=== PATIENT | male | born 1995 | race Caucasian/White ===

== ENCOUNTER 2016-11-02 00:17 | Emergency (ER) | payer MEDICAID ==
[~2016-11-02 00:17] MED LIST: AZULFIDINE500 MG PO; BENTYL10 MG PO; CARAFATE1 G PO; CARAFATE1 G/10 ML PO; DELZICOL400 MG PO; PREDNISONE20 MG PO; PROTONIX I40 MG/VIAL PO; PROTONIX40 MG PO; PROZAC40 MG PO; ULTRAM50 MG PO; XANAX0.25 MG PO
== END 2016-11-02 01:18 | disposition home or self-care (01) ==
LOC: D.ER 00:17
DX: M54.5 Low back pain (principal); G89.29 Other chronic pain; W18.30XA Fall on same level, unspecified, initial encounter; Y93.89 Activity, other specified; Y92.019 Unspecified place in single-family (private) house as the place of occurrence of the external cause; K27.9 Peptic ulcer, site unspecified, unspecified as acute or chronic, without hemorrhage or perforation

== ENCOUNTER 2017-04-08 18:22 | Emergency (ER) | payer MEDICAID | END 2017-04-08 20:34 | disposition home or self-care (01) | LOC: D.ER 18:22 | DX: M79.605 Pain in left leg (principal); L03.116 Cellulitis of left lower limb ==

== ENCOUNTER 2017-10-14 16:11 | Emergency (ER) | payer OTHER ==
[2017-10-21 15:18] LABS: AEROBE ID Final report (())
== END 2017-10-14 18:10 | disposition home or self-care (01) ==
LOC: D.ER 16:11
PROVIDERS: Nurse Practitioner Family
DX: J11.1 Influenza due to unidentified influenza virus with other respiratory manifestations (principal); R05 Cough; R09.89 Other specified symptoms and signs involving the circulatory and respiratory systems; R50.9 Fever, unspecified; R51 Headache; R53.83 Other fatigue

== ENCOUNTER 2017-12-20 19:24 | Emergency (ER) | payer OTHER ==
[2017-12-20 23:37] LABS: HEMATOCRIT 41.6 % (42.0-54.0); HEMOGLOBIN 13.7 g/dL (13.5-17.5); LYMPHOCYTES 29.9 % (15-50); MCH 26.2 pg (26.0-34.0); MCHC 32.9 g/dL (31.0-37.0); MCV 79.7 fL (80.0-100.0); MEAN PLATELET VOLUME 7.8 fL (7.4-10.4); NEUTROPHILS 55.9 % (40-80); PLATELET COUNT 300 10x3/uL (130-400); RBC 5.22 10x6/uL (4.20-6.10); RDW 12.6 % (11.5-14.5); WBC 7.8 10x3/uL (4.8-10.8)
[2017-12-20 23:54] LABS: ALBUMIN 3.5 g/dL (3.4-5.0); ALKALINE PHOSPHATASE 49 U/L (46-116); ALT (SGPT) 32 U/L (10-68); BILIRUBIN - TOTAL 0.18 mg/dL (0.2-1.3); CALC OSMOLALITY 282 mosm/kg (275-300); CALCIUM 9.1 mg/dL (8.5-10.1); CARBON DIOXIDE 28.8 mmol/L (21.0-32.0); CHLORIDE - SERUM 106 mmol/L (98-107); CREATININE - SERUM 0.9 mg/dL (0.6-1.3); PROTEIN - SERUM 7.2 g/dL (6.4-8.2); SODIUM 137 mmol/L (136-145); UREA NITROGEN 12 mg/dL (7-18); eGFR NON AFRICAN AMERICAN > 90 mL/min (90-120)
[2017-12-20 23:57] LABS: GLUCOSE 259 mg/dL (74-106)
== END 2017-12-21 00:17 | disposition home or self-care (01) ==
LOC: D.ER 19:24
PROVIDERS: Physician Assistant Medical
DX: J20.9 Acute bronchitis, unspecified (principal); R50.9 Fever, unspecified

== ENCOUNTER 2018-03-20 17:06 | Emergency (ER) | payer OTHER ==
[2018-03-20 18:56] LABS: BASOPHILS 0.4 % (0-2); EOSINOPHILS 1.9 % (0-7); HEMATOCRIT 42.7 % (42.0-54.0); HEMOGLOBIN 14.5 g/dL (13.5-17.5); IMMATURE GRANULOCYTES 0.2 % (0-5); LYMPHOCYTES 19.8 % (15-50); MCH 26.7 pg (26.0-34.0); MCV 78.6 fL (80.0-100.0); MEAN PLATELET VOLUME 8.6 fL (7.4-10.4); NEUTROPHILS 72.7 % (40-80); PLATELET COUNT 274 10x3/uL (130-400); RBC 5.43 10x6/uL (4.20-6.10); RDW 13.3 % (11.5-14.5); WBC 10.2 10x3/uL (4.8-10.8)
[2018-03-20 19:08] LABS: ALKALINE PHOSPHATASE 66 U/L (46-116); ALT (SGPT) 37 U/L (10-68); BILIRUBIN - TOTAL 0.39 mg/dL (0.2-1.3); CALC OSMOLALITY 282 mosm/kg (275-300); CALCIUM 9.3 mg/dL (8.5-10.1); CHLORIDE - SERUM 101 mmol/L (98-107); CREATININE - SERUM 0.9 mg/dL (0.6-1.3); POTASSIUM - SERUM 3.9 mmol/L (3.5-5.1); PROTEIN - SERUM 7.8 g/dL (6.4-8.2); SODIUM 139 mmol/L (136-145); UREA NITROGEN 11 mg/dL (7-18); eGFR NON AFRICAN AMERICAN > 90 mL/min (90-120)
[2018-03-20 19:12] LABS: GLUCOSE 200 mg/dL (74-106)
[2018-03-20 20:08] LABS: ERYTHROCYTE SEDIMENTATION RATE 2 mm/hr (0-15)
== END 2018-03-20 22:03 | disposition home or self-care (01) ==
LOC: D.ER 17:06
PROVIDERS: Emergency Medicine; Physician Assistant
DX: R10.84 Generalized abdominal pain (principal); E11.9 Type 2 diabetes mellitus without complications; K50.90 Crohn's disease, unspecified, without complications

== ENCOUNTER 2018-04-07 11:37 | Emergency (ER) | payer OTHER ==
[~2018-04-07] VITALS: Ht 185.4 cm; Wt 113.6 kg
[2018-04-07 11:48] VITALS: Ht 185.4 cm; Wt 113.6 kg
[2018-04-07 12:15] LABS: BASOPHILS 0.8 % (0-2); EOSINOPHILS 3.2 % (0-7); HEMATOCRIT 45.7 % (42.0-54.0); HEMOGLOBIN 16.3 g/dL (13.5-17.5); IMMATURE GRANULOCYTES 0.2 % (0-5); LYMPHOCYTES 20.9 % (15-50); MCH 27.4 pg (26.0-34.0); MCHC 35.7 g/dL (31.0-37.0); MCV 76.8 fL (80.0-100.0); MEAN PLATELET VOLUME 8.3 fL (7.4-10.4); MONOCYTES 8.9 % (2-11); PLATELET COUNT 312 10x3/uL (130-400); RBC 5.95 10x6/uL (4.20-6.10); RDW 13.4 % (11.5-14.5); WBC 9.3 10x3/uL (4.8-10.8)
[2018-04-07 12:32] LABS: ALBUMIN 4.2 g/dL (3.4-5.0); ALKALINE PHOSPHATASE 86 U/L (46-116); ALT (SGPT) 74 U/L (10-68); AMYLASE - SERUM 12 U/L (25-115); CALC OSMOLALITY 278 mosm/kg (275-300); CALCIUM 9.1 mg/dL (8.5-10.1); CARBON DIOXIDE 23.3 mmol/L (21.0-32.0); CHLORIDE - SERUM 103 mmol/L (98-107); CREATININE - SERUM 0.9 mg/dL (0.6-1.3); LIPASE 97 U/L (73-393); POTASSIUM - SERUM 3.5 mmol/L (3.5-5.1); PROTEIN - SERUM 8.4 g/dL (6.4-8.2); SODIUM 137 mmol/L (136-145); UREA NITROGEN 18 mg/dL (7-18); eGFR NON AFRICAN AMERICAN > 90 mL/min (90-120)
[2018-04-07 12:38] LABS: GLUCOSE 149 mg/dL (74-106)
[2018-04-07 15:51] LABS: APPEARANCE CLEAR (CLEAR); BILIRUBIN NEGATIVE (NEGATIVE); COLOR YELLOW (YELLOW); GLUCOSE NEGATIVE (NEGATIVE); KETONE NEGATIVE (NEGATIVE); NITRITE NEGATIVE (NEGATIVE); PROTEIN TRACE mg/dL (NEGATIVE); SPECIFIC GRAVITY 1.015 (1.005-1.020); UROBILINOGEN NORMAL (NORMAL)
[2018-04-07] MEDS ORDERED: ZOFRAN4 MG PO (16:33)
[2018-04-07] MEDS ORDERED: PREDNISONE20 MG PO (16:33)
[2018-04-07 17:02] VITALS: BP 124/78
== END 2018-04-07 17:07 | disposition home or self-care (01) ==
LOC: D.ER 11:37
PROVIDERS: Family Medicine
DX: K52.9 Noninfective gastroenteritis and colitis, unspecified (principal); K50.90 Crohn's disease, unspecified, without complications; E11.9 Type 2 diabetes mellitus without complications

== ENCOUNTER 2018-06-06 17:55 | Emergency (ER) | payer OTHER ==
[~2018-06-06] VITALS: Ht 185.4 cm; Wt 131.8 kg
[~2018-06-06 17:55] MED LIST changes: +ZOFRAN4 MG PO
[2018-06-06 18:12] VITALS: Ht 185.4 cm; Wt 131.8 kg
[2018-06-06 19:10] LABS: BASOPHILS 0.1 % (0-2); EOSINOPHILS 2.8 % (0-7); HEMATOCRIT 44.5 % (42.0-54.0); HEMOGLOBIN 15.1 g/dL (13.5-17.5); IMMATURE GRANULOCYTES 0.2 % (0-5); LYMPHOCYTES 18.4 % (15-50); MCH 27.2 pg (26.0-34.0); MCHC 33.9 g/dL (31.0-37.0); MEAN PLATELET VOLUME 8.5 fL (7.4-10.4); MONOCYTES 4.6 % (2-11); NEUTROPHILS 73.9 % (40-80); PLATELET COUNT 290 10x3/uL (130-400); RBC 5.56 10x6/uL (4.20-6.10); RDW 13.2 % (11.5-14.5); WBC 10.2 10x3/uL (4.8-10.8)
[2018-06-06 19:45] LABS: ALBUMIN 3.9 g/dL (3.4-5.0); ALKALINE PHOSPHATASE 75 U/L (46-116); ALT (SGPT) 42 U/L (10-68); AMYLASE - SERUM 13 U/L (25-115); BILIRUBIN - TOTAL 0.29 mg/dL (0.2-1.3); CALC OSMOLALITY 278 mosm/kg (275-300); CALCIUM 8.9 mg/dL (8.5-10.1); CHLORIDE - SERUM 103 mmol/L (98-107); CREATININE - SERUM 0.6 mg/dL (0.6-1.3); GLUCOSE 132 mg/dL (74-106); LIPASE 91 U/L (73-393); POTASSIUM - SERUM 3.9 mmol/L (3.5-5.1); PROTEIN - SERUM 7.6 g/dL (6.4-8.2); SODIUM 140 mmol/L (136-145); UREA NITROGEN 7 mg/dL (7-18); eGFR NON AFRICAN AMERICAN > 90 mL/min (90-120)
[2018-06-07 00:46] VITALS: BP 121/49
== END 2018-06-07 02:49 | disposition home or self-care (01) ==
LOC: D.ER 17:55
PROVIDERS: Family Medicine
DX: K50.90 Crohn's disease, unspecified, without complications (principal); R10.9 Unspecified abdominal pain; E11.9 Type 2 diabetes mellitus without complications; J45.909 Unspecified asthma, uncomplicated; F17.200 Nicotine dependence, unspecified, uncomplicated

== ENCOUNTER 2018-07-07 18:03 | Emergency (ER) | payer OTHER ==
[~2018-07-07] VITALS: Ht 185.4 cm; Wt 113.6 kg
[2018-07-07 18:24] VITALS: Ht 185.4 cm; Wt 113.6 kg
[2018-07-07] MEDS ORDERED: FAMOTIDINE10 MG PO (21:09)
[2018-07-07] MEDS ORDERED: PREDNISONE10 MG PO (21:09)
[2018-07-07 22:04] VITALS: BP 131/82
== END 2018-07-07 21:25 | disposition home or self-care (01) ==
LOC: D.ER 18:03
DX: T78.40XA Allergy, unspecified, initial encounter (principal); X58.XXXA Exposure to other specified factors, initial encounter; Z86.73 Personal history of transient ischemic attack (TIA), and cerebral infarction without residual deficits; E11.9 Type 2 diabetes mellitus without complications; K50.90 Crohn's disease, unspecified, without complications

== ENCOUNTER 2018-08-24 10:06 | Emergency (ER) | payer OTHER ==
[~2018-08-24] VITALS: Ht 185.4 cm; Wt 125.0 kg
[~2018-08-24 10:06] MED LIST changes: +FAMOTIDINE10 MG PO; +PREDNISONE10 MG PO
[2018-08-24 10:14] VITALS: Ht 185.4 cm; Wt 125.0 kg
[2018-08-24 10:32] LABS: BASOPHILS 0.2 % (0-2); EOSINOPHILS 1.3 % (0-7); HEMATOCRIT 46.3 % (42.0-54.0); HEMOGLOBIN 15.7 g/dL (13.5-17.5); IMMATURE GRANULOCYTES 0.4 % (0-5); LYMPHOCYTES 11.3 % (15-50); MCH 27.3 pg (26.0-34.0); MCHC 33.9 g/dL (31.0-37.0); MCV 80.5 fL (80.0-100.0); MEAN PLATELET VOLUME 8.5 fL (7.4-10.4); MONOCYTES 5.7 % (2-11); NEUTROPHILS 81.1 % (40-80); PLATELET COUNT 328 10x3/uL (130-400); RBC 5.75 10x6/uL (4.20-6.10); RDW 12.8 % (11.5-14.5); WBC 16.1 10x3/uL (4.8-10.8)
[2018-08-24 10:49] LABS: ALBUMIN 3.9 g/dL (3.4-5.0); ALKALINE PHOSPHATASE 71 U/L (46-116); ALT (SGPT) 35 U/L (10-68); BILIRUBIN - TOTAL 0.42 mg/dL (0.2-1.3); CALC OSMOLALITY 276 mosm/kg (275-300); CALCIUM 8.9 mg/dL (8.5-10.1); CARBON DIOXIDE 27.1 mmol/L (21.0-32.0); CHLORIDE - SERUM 99 mmol/L (98-107); CREATININE - SERUM 0.7 mg/dL (0.6-1.3); POTASSIUM - SERUM 4.9 mmol/L (3.5-5.1); SODIUM 135 mmol/L (136-145); UREA NITROGEN 14 mg/dL (7-18); eGFR NON AFRICAN AMERICAN > 90 mL/min (90-120)
[2018-08-24 10:51] LABS: GLUCOSE 207 mg/dL (74-106)
[2018-08-24 10:52] LABS: AMYLASE - SERUM 12 U/L (25-115); LIPASE 77 U/L (73-393); TROPONIN-I < 0.017 ng/mL (0.000-0.060)
[2018-08-24 16:17] LABS: APPEARANCE CLEAR (CLEAR); BILIRUBIN NEGATIVE (NEGATIVE); COLOR DK YELLOW (YELLOW); GLUCOSE NEGATIVE (NEGATIVE); KETONE NEGATIVE (NEGATIVE); NITRITE NEGATIVE (NEGATIVE); PH 5.5 (5.0-6.0); PROTEIN NEGATIVE (NEGATIVE); SPECIFIC GRAVITY 1.015 (1.005-1.020); UROBILINOGEN NORMAL (NORMAL)
[2018-08-24] MEDS ORDERED: ZOFRAN4 MG PO (16:36)
[2018-08-24] MEDS ORDERED: CIPRO500 MG PO (16:36)
[2018-08-24] MEDS ORDERED: STERAPRED DS 1210 MG PO (16:36)
[2018-08-24 17:14] VITALS: BP 124/82
== END 2018-08-24 17:16 | disposition home or self-care (01) ==
LOC: D.ER 10:06
PROVIDERS: Family Medicine
DX: K52.9 Noninfective gastroenteritis and colitis, unspecified (principal); R11.2 Nausea with vomiting, unspecified; K50.90 Crohn's disease, unspecified, without complications; Z86.73 Personal history of transient ischemic attack (TIA), and cerebral infarction without residual deficits; E11.9 Type 2 diabetes mellitus without complications

== ENCOUNTER 2018-11-30 18:01 | Emergency (ER) | payer OTHER ==
[~2018-11-30] VITALS: Ht 185.4 cm; Wt 140.9 kg
[~2018-11-30 18:01] MED LIST changes: +CIPRO500 MG PO; +STERAPRED DS 1210 MG PO
[2018-11-30 18:05] VITALS: BP 136/100; Ht 185.4 cm; Wt 140.9 kg
[2018-11-30 18:42] LABS: BASOPHILS 0.8 % (0-2); EOSINOPHILS 6.6 % (0-7); HEMATOCRIT 43.1 % (42.0-54.0); IMMATURE GRANULOCYTES 0.4 % (0-5); LYMPHOCYTES 27.6 % (15-50); MCH 27.3 pg (26.0-34.0); MCHC 34.8 g/dL (31.0-37.0); MCV 78.4 fL (80.0-100.0); MEAN PLATELET VOLUME 8.7 fL (7.4-10.4); MONOCYTES 5.7 % (2-11); NEUTROPHILS 58.9 % (40-80); PLATELET COUNT 308 10x3/uL (130-400); RDW 12.7 % (11.5-14.5); WBC 7.6 10x3/uL (4.8-10.8)
[2018-11-30 18:58] LABS: ALBUMIN 3.7 g/dL (3.4-5.0); ALKALINE PHOSPHATASE 84 U/L (46-116); ALT (SGPT) 39 U/L (10-68); BILIRUBIN - TOTAL 0.25 mg/dL (0.2-1.3); CALCIUM 8.9 mg/dL (8.5-10.1); CARBON DIOXIDE 26.5 mmol/L (21.0-32.0); CHLORIDE - SERUM 96 mmol/L (98-107); CREATININE - SERUM 1.1 mg/dL (0.6-1.3); POTASSIUM - SERUM 4.2 mmol/L (3.5-5.1); PROTEIN - SERUM 7.6 g/dL (6.4-8.2); SODIUM 135 mmol/L (136-145); UREA NITROGEN 12 mg/dL (7-18); eGFR NON AFRICAN AMERICAN 87 mL/min (90-120)
[2018-11-30 19:01] LABS: CALC OSMOLALITY 287 mosm/kg (275-300); GLUCOSE 428 mg/dL (74-106)
== END 2018-11-30 20:23 | disposition left against medical advice (07) ==
LOC: D.ER 18:01
PROVIDERS: Emergency Medicine
DX: E11.65 Type 2 diabetes mellitus with hyperglycemia (principal); Z91.14 Patient's other noncompliance with medication regimen

== ENCOUNTER 2019-01-02 13:40 | Emergency (ER) | payer OTHER ==
[~2019-01-02] VITALS: Ht 185.4 cm; Wt 113.6 kg
[2019-01-02 14:11] VITALS: Ht 185.4 cm; Wt 113.6 kg
[2019-01-02] MEDS ORDERED: TORADOL10 MG PO (18:06)
[2019-01-02] MEDS ORDERED: TAMIFLU75 MG PO (18:07)
[2019-01-02 18:46] VITALS: BP 146/67
== END 2019-01-02 18:25 | disposition home or self-care (01) ==
LOC: D.ER 13:40
DX: J11.1 Influenza due to unidentified influenza virus with other respiratory manifestations (principal); R05 Cough; R09.89 Other specified symptoms and signs involving the circulatory and respiratory systems; M79.18 Myalgia, other site

== ENCOUNTER 2019-03-26 19:27 | Emergency (ER) | payer OTHER ==
[~2019-03-26 19:27] MED LIST changes: +TAMIFLU75 MG PO; +TORADOL10 MG PO
[2019-03-26 19:31] VITALS: BMI 33.0
[2019-03-26] MEDS ORDERED: EC-NAPROSYN500 MG PO (20:35)
[2019-03-26] MEDS ORDERED: ZPAK PO (20:35)
[2019-03-26] MEDS ORDERED: ALBUTEROL SULF8.5 GM INH (20:35)
[2019-03-26 20:58] VITALS: BP 129/60
== END 2019-03-26 20:58 | disposition home or self-care (01) ==
LOC: D.ER 19:27
DX: J40 Bronchitis, not specified as acute or chronic (principal); K08.89 Other specified disorders of teeth and supporting structures

== ENCOUNTER 2019-06-30 17:21 | Inpatient (IN) | payer OTHER ==
[~2019-06-30] VITALS: Ht 185.4 cm; Wt 104.3 kg
[~2019-06-30 17:21] MED LIST changes: +ALBUTEROL SULF8.5 GM INH; +EC-NAPROSYN500 MG PO; +ZPAK PO
[2019-06-30 18:00] LABS: BASOPHILS 0.5 % (0-2); EOSINOPHILS 3.9 % (0-7); HEMATOCRIT 41.5 % (42.0-54.0); HEMOGLOBIN 14.5 g/dL (13.5-17.5); IMMATURE GRANULOCYTES 0.2 % (0-5); LYMPHOCYTES 29.3 % (15-50); MCH 27.4 pg (26.0-34.0); MCHC 34.9 g/dL (31.0-37.0); MCV 78.3 fL (80.0-100.0); MEAN PLATELET VOLUME 8.5 fL (7.4-10.4); MONOCYTES 6.6 % (2-11); NEUTROPHILS 59.5 % (40-80); PLATELET COUNT 257 10x3/uL (130-400); RDW 13.1 % (11.5-14.5); WBC 6.2 10x3/uL (4.8-10.8)
[2019-06-30 18:14] LABS: ALBUMIN 3.7 g/dL (3.4-5.0); ALKALINE PHOSPHATASE 63 U/L (46-116); ALT (SGPT) 37 U/L (10-68); BILIRUBIN - TOTAL 0.23 mg/dL (0.2-1.3); CALCIUM 8.5 mg/dL (8.5-10.1); CARBON DIOXIDE 30.9 mmol/L (21.0-32.0); CHLORIDE - SERUM 95 mmol/L (98-107); POTASSIUM - SERUM 3.9 mmol/L (3.5-5.1); PROTEIN - SERUM 7.3 g/dL (6.4-8.2); SODIUM 134 mmol/L (136-145); UREA NITROGEN 12 mg/dL (7-18); eGFR NON AFRICAN AMERICAN > 90 mL/min (90-120)
[2019-06-30 18:22] LABS: CALC OSMOLALITY 291 mosm/kg (275-300); GLUCOSE 523 mg/dL (74-106)
[2019-06-30 18:54] LABS: APPEARANCE CLEAR (CLEAR); BILIRUBIN NEGATIVE (NEGATIVE); COLOR YELLOW (YELLOW); GLUCOSE 1000 mg/dL (NEGATIVE); KETONE NEGATIVE (NEGATIVE); NITRITE NEGATIVE (NEGATIVE); PROTEIN NEGATIVE (NEGATIVE); UROBILINOGEN NORMAL (NORMAL)
--- NOTE | 2019-06-30 19:15 | NUR ---
PT REPORT RECEIVED FROM CAROLANN PEREZ USING SBAR COMMUNICATION
--- NOTE | 2019-06-30 20:44 | NUR ---
ARRIVED ON FLOOR VIA WC. SELF AMBULATED TO BED WITH SPOUS AT SIDE. ORIENTED TO ROOM AND CALL LIGHT. IV INFUSING PER ORDER TO PATENT LEFT AC. ASSESSMENT AND HISTORY PER FLOW SHEET.
[2019-06-30 22:04] VITALS: BP 151/63; BMI 30.4
[2019-06-30 22:09] LABS: CREATINE KINASE 503 UL (21-232)
--- NOTE | 2019-06-30 22:10 | NUR ---
ADMISSION ASSESSMENT COMPLETE. ORDERED DIATICIAN CONSULT PER PROTOCOL FOR UNCONTROLLED DIABETES.
[2019-06-30 23:09] LABS: CKMB 3.8 U/L (0.0-3.6)
[2019-06-30 23:11] LABS: TROPONIN-I < 0.017 ng/mL (0.000-0.060)
[2019-07-01] VITALS: BP 114/66
[2019-07-01 04:00] VITALS: BP 143/68
[2019-07-01 05:36] LABS: BASOPHILS 0.3 % (0-2); EOSINOPHILS 5.2 % (0-7); HEMATOCRIT 40.9 % (42.0-54.0); IMMATURE GRANULOCYTES 0.5 % (0-5); MCH 26.7 pg (26.0-34.0); MCHC 34.2 g/dL (31.0-37.0); MCV 77.9 fL (80.0-100.0); MEAN PLATELET VOLUME 8.6 fL (7.4-10.4); MONOCYTES 8.3 % (2-11); NEUTROPHILS 52.7 % (40-80); PLATELET COUNT 238 10x3/uL (130-400); RBC 5.25 10x6/uL (4.20-6.10); RDW 13.1 % (11.5-14.5); WBC 6.5 10x3/uL (4.8-10.8)
[2019-07-01 05:48] LABS: % SATURATION 14 % (15-55); IRON 56 ug/dl (35-150); TOTAL IRON BIND CAPACITY 378 ug/dl (260-445); UNSAT IRON BIND CAPACITY 322 ug/dl (150-375)
[2019-07-01 05:49] LABS: KETONE - SERUM NEGATIVE (NEGATIVE)
[2019-07-01 07:28] LABS: CALC OSMOLALITY 285 mosm/kg (275-300); CALCIUM 7.7 mg/dL (8.5-10.1); CARBON DIOXIDE 28.7 mmol/L (21.0-32.0); CHLORIDE - SERUM 106 mmol/L (98-107); CREATINE KINASE 329 UL (21-232); CREATININE - SERUM 0.7 mg/dL (0.6-1.3); FERRITIN 233 ng/mL (3-244); GLUCOSE 225 mg/dL (74-106); MAGNESIUM - SERUM 1.8 mg/dL (1.8-2.4); PHOSPHOROUS 4.1 mg/dL (2.5-4.9); POTASSIUM - SERUM 4.1 mmol/L (3.5-5.1); SODIUM 141 mmol/L (136-145); THYROID STIMULATING HORMONE 2.44 uIU/mL (0.36-3.74); TROPONIN-I < 0.017 ng/mL (0.000-0.060); UREA NITROGEN 8 mg/dL (7-18); eGFR NON AFRICAN AMERICAN > 90 mL/min (90-120)
--- NOTE | 2019-07-01 08:06 | NUR ---
PT RESTING IN BED. DENIES ANY PAIN. BROUGHT PT WATER. NO S.S OF ACUTE DISTRESS. CL IN PLACE.
[2019-07-01 08:13] VITALS: BP 115/64
[2019-07-01 11:44] VITALS: Ht 185.4 cm; Wt 104.3 kg
--- NOTE | 2019-07-01 12:38 | NUR ---
Nutrition education for DMT2: Pt reports he has had diabetes since he was 4 y/o. He states he has never had any nutrition education. Pt states he was insulin for a while; however, he says his Crohns doctor took him off the insulin due to it interfering with his Crohns. Reviewed CHO containing foods and the affect CHO have on glucose. Reviewed sample menus. Pt states he usually eats just one meal a day due to his Crohns; states he has diarrhea after eating and does not want to have issues at work. Advised pt to start eating at least 3 meals a day to prevent overeating at just one meal a day and to prevent low, then high blood glucose. Provided pt with printed diet information and RDN name and phone number. Pt needs more instruction on diet. Recommend outpatient diet education after discharge. Thank you for the consult. RDN will continue to see during hospital stay.
[2019-07-01 13:21] VITALS: BP 144/78
[2019-07-01 16:11] VITALS: BP 157/64
--- NOTE | 2019-07-01 18:42 | NUR ---
PT RESTING IN BED. DIABETES EDUCATION DONE. PT "[place]". AT BEDSIDE. NO S/S OF ACUTE DISTRESS. CL IN PLACE.
--- NOTE | 2019-07-01 19:15 | NUR ---
RECEIVED CARE FROM DAY NURSE. LYING IN BED WITH SPOUSE AT SIDE. REPORTS NO NEEDS AT THIS TIME. CALL LIGHT AT SIDE. IV INFUSING PER ORDER TO PATENT LEFT AC.
[2019-07-01 19:55] VITALS: BP 136/64
[2019-07-02 00:15] VITALS: BP 119/62
--- NOTE | 2019-07-02 00:19 | NUR ---
I have reviewed this patient and I concur with the Shift Assessment completed by the Licensed Practical Nurse today this shift.
[2019-07-02 04:27] VITALS: BP 103/49
[2019-07-02 06:09] LABS: BASOPHILS 0.5 % (0-2); EOSINOPHILS 4.6 % (0-7); HEMATOCRIT 40.3 % (42.0-54.0); HEMOGLOBIN 13.6 g/dL (13.5-17.5); IMMATURE GRANULOCYTES 0.4 % (0-5); LYMPHOCYTES 32.2 % (15-50); MCH 26.7 pg (26.0-34.0); MCHC 33.7 g/dL (31.0-37.0); MCV 79.2 fL (80.0-100.0); MEAN PLATELET VOLUME 8.7 fL (7.4-10.4); MONOCYTES 7.6 % (2-11); NEUTROPHILS 54.7 % (40-80); PLATELET COUNT 240 10x3/uL (130-400); RBC 5.09 10x6/uL (4.20-6.10); RDW 13.1 % (11.5-14.5); WBC 7.3 10x3/uL (4.8-10.8)
[2019-07-02 06:24] LABS: CALC OSMOLALITY 284 mosm/kg (275-300); CALCIUM 7.7 mg/dL (8.5-10.1); CARBON DIOXIDE 31.1 mmol/L (21.0-32.0); CHLORIDE - SERUM 106 mmol/L (98-107); CREATININE - SERUM 0.7 mg/dL (0.6-1.3); MAGNESIUM - SERUM 1.8 mg/dL (1.8-2.4); PHOSPHOROUS 3.9 mg/dL (2.5-4.9); POTASSIUM - SERUM 3.9 mmol/L (3.5-5.1); SODIUM 142 mmol/L (136-145); UREA NITROGEN 7 mg/dL (7-18); eGFR NON AFRICAN AMERICAN > 90 mL/min (90-120)
[2019-07-02 06:28] LABS: GLUCOSE 166 mg/dL (74-106)
--- NOTE | 2019-07-02 07:25 | NUR ---
ALERT AND ORIENTED, RESTING IN BED. FAMILY AT BEDSIDE. DENIES ANY NEEDS AT THIS TIME. CALL LIGHT IN REACH. WILL CONTINUE TO MONITOR.
[2019-07-02 08:03] VITALS: BP 122/71
--- NOTE | 2019-07-02 08:07 | NUR ---
ALERT AND ORIENTED, RESTING IN BED. FAMILY AT BEDSIDE. DENIES ANY NEEDS AT THIS TIME. CALL LIGHT IN REACH. WILL CONTINUE TO MONITOR.
[2019-07-02 11:48] VITALS: BP 164/71
[2019-07-02] MEDS ORDERED: GLYBURIDE5 M1 PO (15:03)
--- NOTE | 2019-07-02 16:14 | NUR ---
PT DISCHARGED HOME WITH FAMILY VIA WHEELCHAIR. DISCONTINUED IV, CATHETER TIP INTACT. WENT OVER DISCHARGE INSTRUCTIONS WITH PATIENT, PATIENT VERBALIZED UNDERSTANDING. DENIES ANY NEEDS.
--- NOTE | 2019-07-02 16:30 | MORECARE ---
CASE MANAGEMENT DISCHARGE SUMMARY PATIENT: CYRUS KRAUSE UNIT: [id number] ADM DATE: 06/30/19 AGE: 24 : [birth year] SEX: M ROOM/BED: D.2217 AUTHOR: DELFINO PHILLIPS PHYSICIAN: REFERRING PHYSICIAN: SU SUMMERS MD DATE OF SERVICE: 07/02/19 Discharge Plan Patient Name: CYRUS KRAUSE Facility: [facility]:[place] : 1995 Planned Disposition: Home Anticipated Discharge Date: 07/02/19 Discharge Date: Expected LOS: 2 Initial Reviewer: [email or web address] Initial Review Date: 06/30/2019 Generated: 07/02/19 5:29 pm Patient Name: CYRUS KRAUSE Page [id number] at 1630 All edits/amendments must be made on the electronic document DICTATION DATE: 07/02/191628 TAX ASSESSOR: ALFONSO 07/02/199 RPT#: [id number] DC DATE: STATUS: ADM IN [facility] [address] [place] [address] END OF REPORT
--- NOTE | 2019-07-02 16:37 | MORECARE ---
CASE MANAGEMENT DISCHARGE SUMMARY PATIENT: CYRUS KRAUSE UNIT: [id number] ADM DATE: 06/30/19 AGE: 24 : 94 SEX: M ROOM/BED: D.2217 AUTHOR: DELFINO PHILLIPS PHYSICIAN: REFERRING PHYSICIAN: SU SUMMERS MD DATE OF SERVICE: 07/02/19 Discharge Plan Patient Name: CYRUS KRAUSE Facility: [facility]:[place] : 1995 Planned Disposition: Home Anticipated Discharge Date: 07/02/19 Discharge Date: 07/02/2019 Expected LOS: 2 Initial Reviewer: [email or web address] Initial Review Date: 06/30/2019 Generated: 07/02/19 5:37 pm DCPIA - Discharge Planning Initial Assessment Updated by [email or web address]: Samara Bobo on 07/02/19 4:32 pm * Is the patient Alert and Oriented? Yes * How many steps to enter\exit or inside your home? one small * PCP DR Gael Hamilton * Pharmacy [facility] * Preadmission Environment Home with Family * ADLs Independent * Equipment None * Other Equipment n/a * List name and contact numbers for known caregivers / representatives who currently or will assist patient after discharge: [facility]- [phone] * Verbal permission to speak to the caregivers and representatives has been obtained from the patient. Yes * Please name any agencies selected above. n/a * Additional services required to return to the preadmission environment? No * Can the patient safely return to the preadmission environment? Yes * Has this patient been hospitalized within the prior 30 days at any hospital? No Last DP export: 07/02/19 3:30 pm Patient Name: CYRUS KRAUSE Page [id number] at 1637 All edits/amendments must be made on the electronic document DICTATION DATE: 07/02/191636 SENIOR ESTIMATOR: ALFONSO 07/02/191636 RPT#: [id number] DC DATE:07/02/19 STATUS: DIS IN [place] [id number] [place] [address] END OF REPORT
--- NOTE | 2019-07-02 16:44 | MORECARE ---
CASE MANAGEMENT DISCHARGE SUMMARY PATIENT: CYRUS KRAUSE UNIT: [id number] ADM DATE: 06/30/19 AGE: 24 : [birth year] SEX: M ROOM/BED: D.2217 AUTHOR: ALAN,DOC PHYSICIAN: REFERRING PHYSICIAN: SU SUMMERS MD DATE OF SERVICE: 07/02/19 Discharge Plan Patient Name: CYRUS KRAUSE Facility: [facility]:[place] : 1995 Planned Disposition: Home Anticipated Discharge Date: 07/02/19 Discharge Date: 07/02/2019 Expected LOS: 2 Initial Reviewer: [email or web address] Initial Review Date: 06/30/2019 Generated: 07/02/19 5:44 pm Comments DCP- Discharge Planning Updated by [email or web address]: Samara Bobo on 07/02/19 3:[address] CM met w/ the patient and his significant other , Trung, at the bedside. He is gathering his belongings for discharge. CM explained my role. He gave permission for assessment. He and Ms Nino answered the assessment questions. They both deny he has any needs. He plans to see his PCP, DR Yasmany Hamilton in the AM. His pharmacy is [facility] on [email or web address]. He had no concerns. He is independent in his care. States he feels his environment is safe. Has a number of pets dogs. He has transportation to home. DCPIA - Discharge Planning Initial Assessment Updated by [email or web address]: Samara Bobo on 07/02/19 4:32 pm * Is the patient Alert and Oriented? Yes * How many steps to enter\exit or inside your home? one small * PCP DR Gael Hamilton * Pharmacy [facility] [address] * Preadmission Environment Home with Family * ADLs Independent * Equipment None * Other Equipment n/a * List name and contact numbers for known caregivers / representatives who currently or will assist patient after discharge: Trung Carbajal- significant other- [phone] * Verbal permission to speak to the caregivers and representatives has been obtained from the patient. Yes * Please name any agencies selected above. n/a * Additional services required to return to the preadmission environment? No * Can the patient safely return to the preadmission environment? Yes * Has this patient been hospitalized within the prior 30 days at any hospital? No Last DP export: 07/02/19 3:37 pm Patient Name: CYRUS KRAUSE Page [id number] at 1644 All edits/amendments must be made on the electronic document DICTATION DATE: 07/02/191643 MENTAL HEALTH ORDERLY: ALFONSO 07/02/194 RPT#: [id number] DC DATE:07/02/19 STATUS: DIS IN [facility] [address] [place] [address] END OF REPORT
== END 2019-07-02 16:35 | disposition home or self-care (01) | DRG 638 ==
LOC: D.ER 17:21 → D.MS 19:55
PROVIDERS: Family Medicine; ADMIT Family Medicine; ATTEND Family Medicine
DX: E11.65 Type 2 diabetes mellitus with hyperglycemia (principal); M62.82 Rhabdomyolysis; E87.1 Hypo-osmolality and hyponatremia; K50.90 Crohn's disease, unspecified, without complications; E86.0 Dehydration; E87.8 Other disorders of electrolyte and fluid balance, not elsewhere classified; D50.9 Iron deficiency anemia, unspecified; I10 Essential (primary) hypertension

== ENCOUNTER 2019-07-06 19:07 | Emergency (ER) | payer OTHER ==
[~2019-07-06] VITALS: Ht 185.4 cm; Wt 111.4 kg
[~2019-07-06 19:07] MED LIST changes: +GLYBURIDE5 M1 PO
[2019-07-06 19:18] VITALS: Ht 185.4 cm; Wt 111.4 kg
[2019-07-06 20:07] LABS: BASOPHILS 0.5 % (0-2); HEMATOCRIT 49.6 % (42.0-54.0); HEMOGLOBIN 17.7 g/dL (13.5-17.5); IMMATURE GRANULOCYTES 0.3 % (0-5); LYMPHOCYTES 12.3 % (15-50); MCH 27.4 pg (26.0-34.0); MCHC 35.7 g/dL (31.0-37.0); MCV 76.7 fL (80.0-100.0); MEAN PLATELET VOLUME 8.7 fL (7.4-10.4); MONOCYTES 5.4 % (2-11); NEUTROPHILS 80.5 % (40-80); PLATELET COUNT 282 10x3/uL (130-400); RBC 6.47 10x6/uL (4.20-6.10); RDW 13.2 % (11.5-14.5); WBC 12.4 10x3/uL (4.8-10.8)
[2019-07-06 20:19] LABS: KETONE - SERUM NEGATIVE (NEGATIVE)
[2019-07-06 20:21] LABS: ALBUMIN 4.8 g/dL (3.4-5.0); ALKALINE PHOSPHATASE 73 U/L (46-116); ALT (SGPT) 57 U/L (10-68); CALC OSMOLALITY 277 mosm/kg (275-300); CALCIUM 10.4 mg/dL (8.5-10.1); CARBON DIOXIDE 29.7 mmol/L (21.0-32.0); CHLORIDE - SERUM 92 mmol/L (98-107); CREATININE - SERUM 1.3 mg/dL (0.6-1.3); POTASSIUM - SERUM 3.9 mmol/L (3.5-5.1); PROTEIN - SERUM 9.2 g/dL (6.4-8.2); SODIUM 133 mmol/L (136-145); UREA NITROGEN 22 mg/dL (7-18); eGFR NON AFRICAN AMERICAN 71 mL/min (90-120)
[2019-07-06 20:22] LABS: GLUCOSE 257 mg/dL (74-106)
[2019-07-06 20:49] LABS: CREATINE KINASE 442 UL (21-232)
[2019-07-06 20:52] LABS: CKMB 3.1 U/L (0.0-3.6)
[2019-07-06 22:09] VITALS: BP 157/74
== END 2019-07-06 22:13 | disposition home or self-care (01) ==
LOC: D.ER 19:07
PROVIDERS: Family Medicine
DX: E86.0 Dehydration (principal); E87.6 Hypokalemia; E11.9 Type 2 diabetes mellitus without complications